=== PATIENT | female | born 1945 | race Two or more races ===

== ENCOUNTER 2023-03-18 05:50 | Day surgery (SDC) | payer OTHER | END 2023-03-18 13:00 | disposition home or self-care (01) | LOC: AMB-ENDOS 05:50 | PROVIDERS: ATTEND Surgery | DX: D12.2 Benign neoplasm of ascending colon (principal); D12.3 Benign neoplasm of transverse colon; K57.30 Diverticulosis of large intestine without perforation or abscess without bleeding; R19.4 Change in bowel habit; R19.5 Other fecal abnormalities; Z86.010 Personal history of colon polyps; Z20.822 Contact with and (suspected) exposure to COVID-19 ==